=== PATIENT | male | born 1965 | race Caucasian/White ===

== ENCOUNTER 2018-03-14 06:54 | Day surgery (SDC) | payer OTHER ==
[2018-03-13 10:01] VITALS: BMI 35.9
[2018-03-14] MEDS ORDERED: Oxymetazoline HCl 0.05% ( 15 ML ) ONE ×2 (07:16→13:29)
[2018-03-14] MEDS ORDERED: Fentanyl 100 MCG/2 ML VIAL ONE ×2 (09:02→11:02)
[2018-03-14] MEDS ORDERED: Midazolam HCl 2 mg/2 ml Vial ONE (09:02)
[2018-03-14] MEDS ORDERED: Bacitracin Zinc Ointment 30 gm TUBE ONE (09:09)
[2018-03-14] MEDS ORDERED: Lidocaine 1% w/Epinephrine 1:100K 30 ML VIAL ONE (09:09)
[2018-03-14] MEDS ORDERED: methylPREDNISolone Acetate 40 mg/ml Vial ONE (09:51)
[2018-03-14] MEDS ORDERED: Hydrocodone-Acetamin 15 ML UDCUP ONE (12:42)
[2018-03-14] MEDS ORDERED: Lidocaine 1% PF 5 ML VIAL ONE (14:19)
[2018-03-14] MEDS ORDERED: Succinylcholine Chloride 20 MG/ML 10 ml SYRINGE FS ONE (14:19)
[2018-03-14] MEDS ORDERED: Ondansetron HCl/PF 4 MG/2 ML Vial ONE (14:19)
[2018-03-14] MEDS ORDERED: ePHEDrine/0.9% NaCl/PF SYRINGE 50 mg/10 ml ONE (14:19)
[2018-03-14] MEDS ORDERED: PROPOFOL 200 MG/20 ML VIAL ONE (14:19)
[2018-03-14] MEDS ORDERED: PHENYLEPHRINE-NS 100 MCG/ML 10 ML SYRINGE ONE (14:19)
[2018-03-14] MEDS ORDERED: Dexamethasone 20 MG/5 ML VIAL ONE (14:19)
--- NOTE | 2018-03-15 12:25 | OP ---
DATE OF PROCEDURE: 03/14/2018 PREOPERATIVE DIAGNOSES: 1. Chronic rhinosinusitis. 2. Nasal septal deviation. 3. Bilateral inferior turbinate hypertrophy. 4. Nasal obstruction. 5. Chronic adenotonsillitis. 6. Adenotonsillar hypertrophy. POSTOPERATIVE DIAGNOSES: 1. Chronic rhinosinusitis. 2. Nasal septal deviation. 3. Bilateral inferior turbinate hypertrophy. 4. Nasal obstruction. 5. Chronic adenotonsillitis. 6. Adenotonsillar tonsillar hypertrophy. PROCEDURES: 1. Bilateral endoscopic sinus surgery, total ethmoidectomies. 2. Bilateral endoscopic sinus surgery, maxillary antrostomies. 3. Bilateral endoscopic sinus surgery, frontal sinusotomies. 4. Bilateral endoscopic sinus surgery, sphenoidotomies. 5. Nasal septoplasty. 6. Bilateral inferior turbinate submucosal resection. 7. Tonsillectomy and adenoidectomy. SURGEON: Francesco Shaw M.D. ESTIMATED BLOOD LOSS: 50 mL COMPLICATIONS: None. ANESTHESIA: GETA. PROCEDURE: Tonsillectomy and adenoidectomy. PROCEDURE IN DETAIL: After consent was obtained, the patient was identified, brought to the operating room, and placed on the operating table in the supine position. General endotracheal anesthesia and intravenous access was obtained and we proceeded with positioning the patient for oropharyngeal surge ry. Oropharyngeal exposure was obtained with a Antoinette-Javier mouth gag after a head drape was placed an d secured with a towel clip. The Antoinette-Javier mouth gag was then suspended from the Oneill tray and [place] jhoana elevation was achieved with a red rubber catheter. The right tonsil was addressed first. We used a curved Allis to grasp the tonsil and retract it medially as an anterior pillar incision was made. The retrotonsillar fascial plane was then established and blunt dissection was performed with the suc tion cautery. Blood vessels were anticipated, identified, and cauterized as they were encountered. Ul timately, dissection was carried to the posterior tonsillar pillar mucosa which was incised hemostati zoe, as well as the base of tongue connection. The tonsil was then passed off as a specimen and ble eding points within the tonsillar bed were cauterized under direct visualization. We subsequently tur arnie our attention to the contralateral side, where using a similar technique, a near identical proced ure was performed. Again, the tonsil was grasped and retracted medially with a curved Allis. The retr otonsillar fascial plane was established and while the anterior pillar was retracted medially, the he mostatic blunt dissection of the tonsil with a suction cautery was performed with blood vessels antic ipated, identified, and cauterized as they were encountered. Again, dissection continued to the base of tongue and posterior tonsillar pillar mucosa which was incised in a hemostatic fashion. The tonsi llar beds were then carefully inspected and bleeding points were identified and cauterized with a suc tion cautery. After this portion of the procedure, hemostasis was completely obtained. Under direct m irror visualization, we visualized the adenoid pad. Under direct mirror visualization, we removed the bulk of the adenoid tissue with the adenoid curette. We then packed the nasopharynx for an appropria te period of time with Murali-Synephrine saturated tonsillar sponges. After a period of observation, we removed the pack. Under indirect mirror visualization, we obtained hemostasis and vaporization of res idual adenoid tissue with electrocautery. The patient's oral cavity was copiously irrigated with iced saline and subsequently suctioned. After completion of the procedure, the nasal cavity and oropharyn x were irrigated and suctioned as were the gastric contents. The patient was then awakened and transf erred to the recovery room where the patient remained in stable condition prior to discharge to [facility]. PROCEDURE: Nasal septoplasty and bilateral inferior turbinate resection. PROCEDURE IN DETAIL: Patient was taken to the operating room and placed supine on the table. General endotracheal anesthesia was obtained by the Anesthesia staff. Tube was secured in the left lower lip. Patient was then placed in the beach chair position, and Afrin pledgets were placed in the nasal cav ity. Injections of 1% lidocaine with 1:100,000 epinephrine were made into the nasal septum as well a s the inferior turbinates. Patient was then prepped and draped in standard surgical fashion for nasal surgery. Following this, the Afrin pledgets were removed. A Ki llian incision was made on the left nasal septum. Submucoperichondrial dissection was performed. The deviated portions of the septum included portions of the cartilage and the bony septum. These isolat ed areas were removed using three cutting rongeurs. There was noted to be a large dorsal and caudal s trut, left intact for support of the nose. The mucoperichondrial flaps were then reapproximated using a 4-0 gut stitch. Any straight pieces of cartilage were crushed prior to this and placed between the mucoperichondrial flaps. Following this, the inferior turbinates were then punctured with a submucos al coblation wand, and submucosal coblations were performed of multiple areas of the inferior portion of the anterior inferior turbinate. Please note that the submucosal microdebrider was used to submucosally resect the anterior and inferi or portions of the inferior turbinates bilaterally. Following this, the 0 degree scope was advanced in the middle meatus. The middle turbinates were gently medialized exposing the uncinate process trudi aterally. Following this, the uncinate process was anteriorly fractured using a bone and a probe and then was removed bilaterally using the microdebrider and upbiting Blakesley forceps. Following this , the natural maxillary sinus ostia was visualized bilaterally and was widened using the curved micro debrider. Following this, the ethmoidal bulla was identified and was punctured on its medial and inf erior aspect bilaterally with the microdebrider. The ethmoidal bulla was then removed using the micr odebrider and the curved plexus and upbiting Blakesley forceps. Following this, the grand lamella wa s identified and was punctured into the posterior ethmoidal cells bilaterally. Working from posterio r to anterior, the ethmoidal cells were opened in a mucosal-sparing technique. Following this, the s phenoid sinus ostia were identified bilaterally. The superior turbinate was attached to the posterio r nasal wall. Staying just medial and inferior to this attachment, the sphenoidotomies were created bilaterally and widened medially and inferiorly using the 0-degree microdebrider. Following this, 45 -degree scope and the upbiting microdebrider were used to further open the frontal recess cells and e xpose and open the frontal sinus ostia bilaterally. The patient tolerated the procedure well. Nasal cavity was irrigated. Merogel packs were placed within the middle meatus. Echeverria splints were place d and secured.
== END 2018-03-14 13:40 | disposition home or self-care (01) ==
LOC: SDC 06:54
PROVIDERS: ATTEND Otolaryngology Plastic Surgery within the Head & Neck
DX: J32.9 Chronic sinusitis, unspecified (principal); J34.2 Deviated nasal septum; J34.3 Hypertrophy of nasal turbinates; J35.03 Chronic tonsillitis and adenoiditis; F32.9 Major depressive disorder, single episode, unspecified
CPT/HCPCS: 88304; 93005; 93010; J1030; J1100; J2001; J2250; J2405; J2704; J3010